=== PATIENT | male | born 1980 | race Caucasian/White ===

== ENCOUNTER 2021-05-14 01:19 | Emergency (ER) | payer OTHER ==
[~2021-05-14] VITALS: Ht 167.6 cm; Wt 88.0 kg
[2021-05-14 01:33] VITALS: BP 143/95
[2021-05-14] MEDS ORDERED: IBUPROFEN 600 MG TAB PO ONE (01:45)
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
[2021-05-14] MEDS ORDERED: NAPR-54 PO (03:45)
[2021-05-14 03:48] VITALS: BP 143/95
--- NOTE | 2021-05-14 03:48 | NUR ---
Patient discharged with v/s stable BY . Written and verbal after care instructions given and explained BY . Patient alert, oriented and verbalized understanding of instructions. Ambulatory with steady gait BY . All questions addressed prior to discharge BY . ID band removed. Patient advised to follow up with [facility] . Rx of NAPROXEN given BY . Patient educated on indication of medication including possible reaction and side effects BY . Opportunity to ask questions provided and answered BY .
== END 2021-05-14 03:48 | disposition home or self-care (01) ==
LOC: MED 01:19
DX: S22.41XA Multiple fractures of ribs, right side, initial encounter for closed fracture (principal); R10.11 Right upper quadrant pain; Z79.899 Other long term (current) drug therapy; W10.9XXA Fall (on) (from) unspecified stairs and steps, initial encounter; Y93.89 Activity, other specified; Y92.89 Other specified places as the place of occurrence of the external cause; Y99.8 Other external cause status
CPT/HCPCS: 71250; 99284